=== PATIENT | female | born 1945 | race Caucasian/White ===

== ENCOUNTER 2016-08-24 06:35 | Day surgery (SDC) | payer OTHER ==
--- NOTE | ~2016-08-24 | OP ---
Record Of Operation [facility] [address] [place]. [address] NAME: BOB TOMLINSON : 47 STATUS : REG [facility] PAT#: [id number] AGE: 71 ADM/REG DATE : 08/24/16 MR#: [id number] REPORT SERV DATE: 08/24/16 DICTATED BY: ANDRES GAUTAM JR. DATE: 08/24/16 REPORT STATUS : Draft TRANSCRIBED BY: JUSTA DATE: 08/24/16 DATE OF PROCEDURE: 08/24/2016 PREOPERATIVE DIAGNOSES: Adenocarcinoma, left upper lobe, status post left upper lobectomy; enlarging right upper lobe lesion with paratracheal lymphadenopathy, rule out metastatic cancer; chronic obstructive pulmonary disease; gastroesophageal reflux disease; hypertension; anxiety disorder. POSTOPERATIVE DIAGNOSIS: Metastatic adenocarcinoma. NAME OF OPERATION: Diagnostic and therapeutic bronchoscopy, endobronchial ultrasound with multiple fine-needle aspirations, alan stations 4R and 10R. SURGEON: Dr. Andres Gautam Jr RESIDENT SURGEON: Dr. Dale Miller. ANESTHESIA: General endotracheal. FINDINGS: The patient noted to have pathologically enlarged lymph nodes in the right paratracheal and right main stem, and hilar regions. Nodes in the 10R are 4R regions were sampled. Touch preps demonstrated metastatic adenocarcinoma. Additional material was sent for cell block. Studies for PD-L1 and NextGen sequencing were ordered. This was done in consultation with Dr. Bonifacio Delong on the phone. DETAILS OF OPERATION: After adequate general anesthesia, the patient was intubated with an LMA. A diagnostic and therapeutic bronchoscopy was performed, noting the left bronchial stump intact. There were no endobronchial lesions. Mucous secretions were evacuated. Endobronchial ultrasound was then performed with the above findings noted. Multiple fine- needle aspirations were performed in the pathologic lymph nodes, in the right paratracheal, and right mainstem bronchial regions. Touch preps demonstrated metastatic adenocarcinoma. Additional material sent for cell block. Adequate hemostasis was then obtained. The procedure was terminated at this point. The patient tolerated the procedure well and taken back to recovery room in stable condition. DANILO/JUSTA Andres Gautam Jr., M.D. / [id number] CC: Andres Gautam Jr., M.D. Record Of Operation [place] [address] [place]. [address] NAME: BOB TOMLINSON : [birth year] STATUS : REG [facility] PAT#: [id number] AGE: 71 ADM/REG DATE : 08/24/16 MR#: [id number] REPORT SERV DATE: 08/24/16 DICTATED BY: ANDRES GAUTAM JR. DATE: 08/24/16 REPORT STATUS : Draft TRANSCRIBED BY: EWELINAL DATE: 08/24/16 Deanna Cruz M.D. Becky Craig IV, M.D.
[~2016-08-24 06:35] MED LIST: ACET500CAP PO; ASA5GR PO; LOVENOX40 SC; MAGNESIUM PO; NEXIUM40 PO; NORCO1 TAB PO; OXYCON10 PO; PERCOCET 10/3251 TAB PO; PERCOCET PO; POTASSIUM PO; PROAIR HFA INH; T PO; VICODINTAB PO; X5 PO; ZANTAC 150 PO
[2016-08-24 06:49] LABS: HEMOGLOBIN 12.9 g/dL (12.0-16.0)
== END 2016-08-24 23:59 | disposition home health service (06) ==
LOC: DMU 06:35
PROVIDERS: Anesthesiology; Thoracic Surgery (Cardiothoracic Vascular Surgery)
PROC: 07B74ZX Excision of Thorax Lymphatic, Percutaneous Endoscopic Approach, Diagnostic (ICD-10-PCS; principal; 2016-08-24 08:00)
DX: C96.9 Malignant neoplasm of lymphoid, hematopoietic and related tissue, unspecified (principal); R91.1 Solitary pulmonary nodule; R59.1 Generalized enlarged lymph nodes; J44.9 Chronic obstructive pulmonary disease, unspecified; K21.9 Gastro-esophageal reflux disease without esophagitis; E78.2 Mixed hyperlipidemia; M81.0 Age-related osteoporosis without current pathological fracture; F41.9 Anxiety disorder, unspecified; M19.90 Unspecified osteoarthritis, unspecified site; I10 Essential (primary) hypertension; Z87.891 Personal history of nicotine dependence; Z88.2 Allergy status to sulfonamides; Z88.8 Allergy status to other drugs, medicaments and biological substances; Z79.01 Long term (current) use of anticoagulants; Z79.899 Other long term (current) drug therapy; Z90.49 Acquired absence of other specified parts of digestive tract; Z90.710 Acquired absence of both cervix and uterus; Z98.890 Other specified postprocedural states
CPT/HCPCS: 85014; 85018; 88172; 88173; 88305; 93005; A9270-GY; J2250; J2370; J2405; J2550; J3010